=== PATIENT | male | born 1935 | race Caucasian/White ===

== ENCOUNTER → 2016-12-05 | Outpatient (CLI) | payer OTHER, MEDICARE ==
[~2016-12-05] MED LIST: ADULT LOW DOSE81 MG PO; ADVIL COLD & S1 EAC1 PO; ASMANEX0.135 GM IH; CADUET 2.5 MG PO; CARDIZEM CD240 MG PO; CIPROFLOXACIN500 M1 PO; ELIQUIS5 MG PO; FISH OIL 1,0001 EAC5 PO; FORADIL12 MCG PO; FUROSEMIDE 40 M40 M1 PO; GLUCOSAMINE CH1 EAC2 PO; LEVOTHYROXIN0.025 MG PO; MACULAR VITAMI0.5 MG PO; MIRALAX17 GM PO; MUCINEX600 MG PO; MULTIVITAMINS PO; NORVASC2.5 MG PO; OCUVITE LUTEIN1 EAC1 PO; OMNARIS SPRAY; OXYGEN MISCELL; PERCOCET 7.5-31 EACH PO; PERCOCET PO; POTASSIUM GLUC500 MG PO; PRESERVISION A1 EACH PO; PRILOSEC 20 MG20 MG PO; PRILOSEC20 MG PO; PROTONIX40 M2 PO; PROVENTIL HFA6.7 G1 PO; ROBAXIN 750 MG750 MG PO; SIMVASTATIN20 MG PO; SPIRIVA INH; STOOL SOFTENER50 MG PO; SYMBICORT160 MCG/4. INH; TAMSULOSIN HCL0.4 MG PO; TIROSINT75 MCG PO; VENTOLIN HFA 1818 GM INH; XOPENEX HF1 UDINHALE IH
== END ==
LOC: PET 01:08
DX: C34.90 Malignant neoplasm of unspecified part of unspecified bronchus or lung (principal)

== ENCOUNTER 2016-12-19 05:13 | Day surgery (SDC) | payer OTHER, MEDICARE ==
[~2016-12-19] VITALS: Ht 177.8 cm; Wt 83.9 kg
--- NOTE | ~2016-12-19 | CNG ---
[facility] [place] [address] CYTO-NONGYN REPORT PROCEDURE Name: TON BRUNO Room #: DEP [facility]#: [id number] Admission: 12/19/16 Date of : 33 Discharge: 12/19/16 Report #: [id number] Path Case #: [id number] CYTOPATHOLOGY REPORT COLLECTION DATE: 12/19/2016 RECEIVED DATE: 12/20/2016 SUBMITTING PHYS: Dr. Chidi Cortez OTHER PHYS: CLINICAL HISTORY: Endobronchial ultrasound, Lung Mass PROCEDURE: A. Passes performed by Dr. Cortez yielding fluid. Four H and E slides, and 50 mL from needle rinsed in formalin were submitted to the lab. SPECIMEN(S) RECEIVED: A.EBUS guided Fine needle aspiration, Node 7 passes 1-10 * * * * * * * * * * * * FINAL DIAGNOSIS: EBUS guided fine needle aspiration, node 7 passes 1-10: - No malignant epithelial cells identified. - Lymphoid tissue present with admixed bronchial epithelial cells, rare squamous epithelial cells and blood. 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 No malignant epithelial cells are identified in the current specimen. Background lymphoid tissue is identified. Clinical and radiographic correlation is required. (CLW:edmar; 12/21/2016) PATHOLOGIST: Areli Pratt M.D. REPORT ELECTRONICALLY SIGNED BY: Areli Pratt M.D. DATE/TIME: 12/21/2016 15:31 * * * * * * * * * * * * GROSS PATHOLOGY: A. EBUS guided Fine needle aspiration, Node 7 passes 1-10: The specimen is labeled "Ton Bruno" and consists of two H and E slides labeled pass 1, two H and E slides labeled pass 8. Fifty mL of cloudy parikh fluid in formalin from the needle rinse is also submitted and a cell block only was prepared from this material. (mm 12.20.2016) IMMEDIATE EVALUATION: Lymph node location 7 pass 1: Per Dr. Malik; [place] [id number] CYTO-NONGYN REPORT PROCEDURE Name: TON BRUNO Room #: [facility]#: [id number] Admission: 12/19/16 Date of : 33 Discharge: 12/19/16 Report #: [id number] Path Case #: [id number] diagnostic of malignancy. Lymph node 7 pass 8: Per Dr. Malik; Few lymphocytes- No malignant cells. Professional services performed under supervision of [facility] at [address] [place] [address] , [place] [address]. SPOOL HAULER(S): DARIUS Avery(ASCP) INITIAL CPT CODE(S): A; 86846, 59042, 66634, 94027 Professional services performed by [facility] at [address] [place] [address] Technical services performed by [facility] at [address] [place] [address]., [address], [place] [address]. [facility] [address] [place] [address], [address] [place] [address] PHONE: [phone] DIRECTOR: Frantz Singh M.D. * * * END OF REPORT * * *
--- NOTE | ~2016-12-19 | P ---
[facility] [place] [address] PROCEDURE REPORT Name: KIARA BRUNO Room #: DEP [facility]#: [id number] Admission: 12/19/16 Attend Phys: Chidi Cortez MD Discharge: 12/19/16 Date of : 33 Report #: [id number] THIS REPORT FOR: //name// CC: [facility] physician/PCP Benji Maxwell MD DATE OF SERVICE: 12/19/2016 PROCEDURE: Fiberoptic bronchoscopy and endobronchial ultrasound with biopsies of the level 7 lymph node. INDICATIONS: History of lung cancer and small subcarinal adenopathy that was slightly PET avid. This was done under general endotracheal anesthesia. ASA classification class 2. PROCEDURE NOTATION: After discussing risks and benefits of the planned procedure with the patient, he desired to proceed. After obtaining informed consent, he was brought to OR room 6 and placed under general endotracheal anesthesia by anesthesia. Please see their notes for details. A white light bronchoscope was then inserted into the endotracheal tube, which was an 8.5 endotracheal tube, until the distal trachea was seen. Distal trachea appeared normal. Endotracheal tube was positioned in an optimal position to allow good visualization with endobronchial ultrasound. The airways were then explored. FINDINGS: Mainstem, lobar, segmental and subsegmental bronchi were explored as best as able. The right upper lobe stump from prior upper lobe resection and right middle lobe stump from prior resection appeared slightly distorted, but appropriate for prior surgery. Right lower lobe bronchi all appeared patent, with no significant endobronchial disease. Left-sided structures appeared patent, with no significant endobronchial disease or significant anatomic variation. Some thick clear mucus was noted and was aspirated. The white light bronchoscope was removed and endobronchial ultrasound was then advanced through the endotracheal tube and the typical sites were surveyed. Because of anatomic distortion after right upper and middle lobe lobectomy, some of the right-sided structures were low at a typical location. No significant right-sided adenopathy was noted. There is a 4R lymph node that measured 5 mm and a 4L lymph node that measured 3 mm. No significant left-sided lymphadenopathy noted or 11L positions. Level 7 lymph node noted from both the right and left mainstem bronchus was about 9 mm in diameter. This was sampled with 10 fine needle aspirates 6 times with a 22-gauge needle and 4 times with 25-gauge needle. The immediate rapid onsite pathology did confirm lymphocyte tissue. No malignancy noted on rapid onsite evaluation. Several specimens sent in formalin [address] [address] PROCEDURE REPORT Name: KIARA BRUNO Room #: DEP [facility]#: [id number] Admission: 12/19/16 Attend Phys: Chidi Cortez MD Discharge: 12/19/16 Date of : 33 Report #: [id number] for additional pathology. The patient tolerated well. No noted complications at the time of dictation. <ELECTRONICALLY SIGNED> By: Chidi Cortez MD 12/26/16 [id number] Chidi Cortez MD /nt
[~2016-12-19 05:13] MED LIST changes: +LEVOTHYROXINE 0.1 MG PO; +MULTI VITAMIN1 EACH PO; +VERAPAMIL HCL 880 M1 PO
[2016-12-19 07:08] VITALS: BP 136/62
[2016-12-19 07:12] LABS: HEMATOCRIT 39.8 % (42.0-52.0); MCH 26.6 pg (26.0-34.0); MCHC 32.6 g/dL (28.0-37.0); MCV 81.7 fL (80.0-100.0); RBC 4.88 mil/uL (4.50-6.00); RDW 21.2 % (10.5-14.5); WBC 8.7 thou/uL (4.0-11.0)
[2016-12-19 07:18] LABS: CALCIUM 8.4 mg/dL (8.5-10.1); CREATININE 1.3 mg/dL (0.7-1.3); POTASSIUM 3.7 mmol/L (3.5-5.1)
[2016-12-19 07:32] LABS: PROTIME 10.3 Seconds (9.3-11.4)
== END 2016-12-19 09:55 | disposition home or self-care (01) ==
LOC: OR 05:13 → TBA 05:13 → OR 09:55
PROVIDERS: Student in an Organized Health Care Education/Training Program
DX: Z85.118 Personal history of other malignant neoplasm of bronchus and lung (principal); Z87.891 Personal history of nicotine dependence; J45.909 Unspecified asthma, uncomplicated; J44.9 Chronic obstructive pulmonary disease, unspecified; J43.9 Emphysema, unspecified; I10 Essential (primary) hypertension; Z98.890 Other specified postprocedural states; K21.9 Gastro-esophageal reflux disease without esophagitis; E03.9 Hypothyroidism, unspecified
CPT/HCPCS: 50010; 62110; 70005